=== PATIENT | female | born 1990 | race Caucasian/White ===

== ENCOUNTER 2024-02-07 10:18 | Outpatient (CLI) | payer BC, SELFPAY | END 2024-02-07 10:19 | disposition home or self-care (01) | PROVIDERS: PCP Family Medicine; Visit Provider Physician Assistant | DX: L68.0 Hirsutism (principal); Z83.49 Family history of other endocrine, nutritional and metabolic diseases; Z13.220 Encounter for screening for lipoid disorders | CPT/HCPCS: 80061; 82627; 82947; 83498; 84270; 84402; 84403; 84443 ==

== ENCOUNTER 2024-10-16 08:26 | Outpatient (CLI) | payer BC, SELFPAY ==
[2024-10-18 07:56] LABS: HPV Source Cervical; HPV, High Risk by TMA Not Detected
== END 2024-10-16 08:27 | disposition home or self-care (01) ==
PROVIDERS: PCP Emergency Medicine; Visit Provider Emergency Medicine
DX: N92.6 Irregular menstruation, unspecified (principal); Z12.4 Encounter for screening for malignant neoplasm of cervix; Z13.220 Encounter for screening for lipoid disorders; Z13.1 Encounter for screening for diabetes mellitus; Z11.51 Encounter for screening for human papillomavirus (HPV)
CPT/HCPCS: 80061; 82947; 84439; 84443; 87624; 87625; 88141; 88142

== ENCOUNTER 2025-03-18 11:42 | Outpatient (CLI) | payer BC, SELFPAY | END 2025-03-18 11:43 | disposition home or self-care (01) | LOC: LKVREF 11:42 | PROVIDERS: PCP Emergency Medicine; Visit Provider Emergency Medicine | DX: R63.5 Abnormal weight gain (principal) | CPT/HCPCS: 84443 ==